=== PATIENT | female | born 1995 | race Caucasian/White ===

== ENCOUNTER 2025-04-15 16:34 | Emergency (ER) | payer OTHER ==
[~2025-04-15] VITALS: Ht 152.4 cm; Wt 54.0 kg
[2025-04-15 16:36] VITALS: O2SAT 98
[2025-04-15 17:52] VITALS: TEMP 36.8
[2025-04-15] MEDS ORDERED: CYCLOBENZAPRINE 10MG TABLET PO ONE (18:00)
[2025-04-15] MEDS ORDERED: KETOROLAC 15MG/ML VIAL IM ONE (18:00)
[2025-04-15 18:37] LABS: BASOPHILS % 0.5 % (0.0-2.0); EOSINOPHILS % 5.9 % (0.0-5.0); HEMATOCRIT. 40.6 % (36.0-48.0); HEMOGLOBIN. 13.8 g/dL (12.0-16.0); LYMPHOCYTES % 28.1 % (20.0-50.0); MEAN CORPUSCULAR HEMOGLOBIN 29.7 pg (28.0-32.0); MEAN CORPUSCULAR HGB CONC 33.9 g/dL (31.0-37.0); MEAN CORPUSCULAR VOLUME 87.6 fL (81.0-99.0); MEAN PLATELET VOLUME 7.5 fl (7.4-10.4); MONOCYTES % 3.8 % (2.0-8.0); NEUTROPHILS % 61.7 % (40.0-76.0); PLATELET 324 x1000/uL (130-400); RED BLOOD CELL COUNT 4.64 mill/uL (4.2-5.4); RED CELL DISTRIBUTION WIDTH 13.6 % (11.6-14.6); WHITE BLOOD COUNT 8.7 x1000/uL (4.5-11.0)
[2025-04-15] MEDS: LIDOCAINE 5% PATCH TOP SCH (18:40)
[2025-04-15] MEDS: CYCLOBENZAPRINE 10MG TABLET PO NR (18:40)
[2025-04-15 18:45] LABS: CHLORIDE 105 mEq/L (98-107); POTASSIUM 3.6 mEq/L (3.5-5.1); SODIUM 138 mEq/L (136-145)
[2025-04-15 18:46] LABS: CALCIUM 9.7 mg/dL (8.7-10.4); CARBON DIOXIDE 24 mEq/L (21-32)
[2025-04-15 18:51] LABS: CREATININE 0.6 mg/dL (0.6-1.0); GLUCOSE 83 mg/dL (70-105); HCG SCREEN NEGATIVE; UREA NITROGEN BLOOD 9 mg/dL (9-23)
[2025-04-15 18:58] LABS: PROTHROMBIN TIME 10.9 sec (9.6-11.0)
[2025-04-15] MEDS: ONDANSETRON HCL 4MG/2ML INJ IV ONE (19:15)
[2025-04-15] MEDS: MORPHINE SULFATE 4 MG/ML INJ (FOR IV/IM USE) IV ONE (19:15)
[2025-04-15] MEDS: KETOROLAC 15MG/ML VIAL IM NR (19:16)
[2025-04-15] MEDS: IOHEXOL-300 100 ML BOTTLE ONE (23:04)
[2025-04-16] MEDS ORDERED: IBUP-2029 MT (01:59)
[2025-04-16] MEDS ORDERED: LIDO700A30 TP (01:59)
[2025-04-16] MEDS ORDERED: METH-653 MT (01:59)
[2025-04-16 02:21] VITALS: BP 95/53; PULSE 54; RESP 11; O2SAT 97
== END 2025-04-16 03:00 | disposition home or self-care (01) ==
LOC: ER 16:34
DX: R55 Syncope and collapse (principal); R51.9 Headache, unspecified; M54.9 Dorsalgia, unspecified; M54.50 Low back pain, unspecified; V43.62XA Car passenger injured in collision with other type car in traffic accident, initial encounter; Y93.89 Activity, other specified; Y92.410 Unspecified street and highway as the place of occurrence of the external cause; Y99.9 Unspecified external cause status
CPT/HCPCS: 99285; 70450; 72148; 96374; 96375; 80048; 84703; 85025; 85610; 36415; 72125; 72128; 72131; 74177; 96372; J1885; Q9967; J2405; J2270

== ENCOUNTER 2025-04-17 20:56 | Emergency (ER) | payer OTHER ==
[~2025-04-17] VITALS: Ht 162.6 cm; Wt 64.0 kg
[~2025-04-17 20:56] MED LIST: IBUP-2029 MT; LIDO700A30 TP; METH-653 MT
[2025-04-17 21:11] VITALS: O2SAT 96
[2025-04-17 21:13] VITALS: BP 121/80; PULSE 75; RESP 14; TEMP 36.6; O2SAT 100
== END 2025-04-17 23:36 | disposition home or self-care (01) ==
LOC: ER 21:05
DX: M54.50 Low back pain, unspecified (principal); Z79.899 Other long term (current) drug therapy
CPT/HCPCS: 99281